=== PATIENT | male | born 1945 | race Caucasian/White ===

== ENCOUNTER 2024-12-06 19:08 | Inpatient (IN) | payer MEDICARE, BC, OTHER ==
[2024-12-06] VITALS: BP 112/68; TEMP 98.2; O2SAT 99
[~2024-12-06] VITALS: Ht 175.3 cm; Wt 97.1 kg
[2024-12-06 20:24] LABS: PLATELET COUNT (AUTO) 194 K/uL (150-450); RED BLOOD CELL COUNT(AUTO) 4.25 MIL/uL (4.5-6.0); RED CELL DISTRIBUTION WIDTH 16.5 % (11.5-15.0); WHITE BLOOD COUNT (AUTO) 6.8 K/uL (4.3-11.0)
[2024-12-06 20:28] LABS: CALCIUM, SERUM 8.1 mg/dL (8.5-10.1); CREATININE 0.8 mg/dL (0.6-1.3); SODIUM SERUM 135 mmol/L (136-145); UREA NITROGEN, BLOOD 15 mg/dL (7-18)
[2024-12-06 20:41] LABS: ASPARTATE AMINOTRANSFERASE 25 U/L (15-37); NT-PRO BNP 6251 pg/mL (0-125); TOTAL PROTEIN, SERUM 6.2 g/dL (6.4-8.2)
[2024-12-06] MEDS ORDERED: FUROSEMIDE 40 MG/4 ML VIAL ONE (21:20)
[2024-12-06] MEDS: FUROSEMIDE 40 MG/4 ML VIAL IV ONE (21:28)
[2024-12-06 21:44] VITALS: BP 122/80; TEMP 98.2; O2SAT 98
[2024-12-06 22:00] VITALS: BP 122/80; TEMP 98.2; O2SAT 98
[2024-12-06] MEDS ORDERED: MAG HYDROX/AL HYDROX/SIMETH 30 ML UDC PO PRN (22:00)
[2024-12-06] MEDS ORDERED: MAGNESIUM HYDROXIDE 30 ML UDC PO PRN (22:00)
[2024-12-07] VITALS: BP 112/68; TEMP 98.2; O2SAT 99
[2024-12-07] MEDS ORDERED: ATOR20TA PO (00:25)
[2024-12-07] MEDS ORDERED: SENN1TAB33 PO (00:25)
[2024-12-07] MEDS ORDERED: TAMS-12 PO (00:25)
[2024-12-07 00:59] LABS: APPEARANCE,URINE CLEAR (CLEAR); BLOOD, URINE NEGATIVE Ery/uL (NEGATIVE); LEUKOCYTE ESTERASE ,URINE TRACE (NEGATIVE); NITRITE, URINE NEGATIVE (NEGATIVE); UGLUCOSE NEGATIVE (NEGATIVE)
[2024-12-07 01:05] LABS: ADD URINE CULTURE NO; SQUAMOUS EPITHELIAL CELL,UR Rare /HPF (None Seen)
[2024-12-07 04:00] VITALS: BP 119/86; TEMP 98.2; O2SAT 98
[2024-12-07 07:30] VITALS: BP 118/80; TEMP 97.5; O2SAT 99
[2024-12-07 07:58] LABS: CALCIUM, SERUM 8.4 mg/dL (8.5-10.1); CREATININE 0.9 mg/dL (0.6-1.3); NT-PRO BNP 6612.0 pg/mL (0-125); PHOSPHORUS 4.4 mg/dL (2.5-4.9); SODIUM SERUM 142.0 mmol/L (136-145); UREA NITROGEN, BLOOD 13.0 mg/dL (7-18)
[2024-12-07 08:08] LABS: PLATELET COUNT (AUTO) 197 K/uL (150-450); RED BLOOD CELL COUNT(AUTO) 4.45 MIL/uL (4.5-6.0); RED CELL DISTRIBUTION WIDTH 15.9 % (11.5-15.0); WHITE BLOOD COUNT (AUTO) 5.6 K/uL (4.3-11.0)
[2024-12-07] MEDS: FUROSEMIDE 20 MG/2 ML VIAL IV SCH (08:28)
[2024-12-07] MEDS: TAMSULOSIN 0.4 MG CAP.SR.24H PO SCH (09:09)
[2024-12-07] MEDS ORDERED: SENNOSIDES/DOCUSATE SODIUM 1 TAB TABLET PO PRN (09:30)
[2024-12-07] MEDS: FUROSEMIDE 40 MG/4 ML VIAL IV SCH (12:58)
[2024-12-07] MEDS: ACETAMINOPHEN 325 MG TABLET PO PRN (16:55)
[2024-12-07 20:00] VITALS: BP 101/69; TEMP 98.1; O2SAT 98
[2024-12-07] MEDS: ENOXAPARIN SODIUM 40 MG/0.4 ML DISP.SYRIN SQ SCH (20:23)
[2024-12-08 04:00] VITALS: BP 108/67; TEMP 97.9; O2SAT 98
[2024-12-08 06:58] LABS: LDL 31.0 mg/dL (0-99)
[2024-12-08 07:00] LABS: PLATELET COUNT (AUTO) 202 K/uL (150-450); RED BLOOD CELL COUNT(AUTO) 4.29 MIL/uL (4.5-6.0); RED CELL DISTRIBUTION WIDTH 15.3 % (11.5-15.0); WHITE BLOOD COUNT (AUTO) 5.2 K/uL (4.3-11.0)
[2024-12-08 07:06] LABS: ASPARTATE AMINOTRANSFERASE 14.0 U/L (15-37); CALCIUM, SERUM 8.0 mg/dL (8.5-10.1); CREATININE 1.1 mg/dL (0.6-1.3); PHOSPHORUS 4.5 mg/dL (2.5-4.9); SODIUM SERUM 142.0 mmol/L (136-145); TOTAL PROTEIN, SERUM 5.7 g/dL (6.4-8.2); UREA NITROGEN, BLOOD 16.0 mg/dL (7-18)
[2024-12-08 08:00] VITALS: BP 99/64; TEMP 97.7; O2SAT 96
[2024-12-08] MEDS: SPIRONOLACTONE 25 MG TABLET PO SCH (09:39)
[2024-12-08] MEDS: POTASSIUM CHLORIDE 20 MEQ TAB.PRT.SR PO SCH (09:39)
[2024-12-08] MEDS: ATORVASTATIN 40 MG TABLET PO SCH (09:39)
[2024-12-08] MEDS: ENOXAPARIN SODIUM 100 MG/ML DISP.SYRIN SQ SCH (09:52)
[2024-12-08] MEDS: NEOMY SULF/BACITRAC ZN/POLY 15 GM TUBE TP SCH (10:44)
[2024-12-08 11:30] VITALS: BP 95/61; TEMP 97.7; O2SAT 96
[2024-12-08 16:00] VITALS: BP 112/70; TEMP 97.9; O2SAT 97
[2024-12-08 20:00] VITALS: BP 101/63; TEMP 97.7; O2SAT 99
[2024-12-08 23:52] VITALS: BP 100/76; TEMP 98; O2SAT 98
[2024-12-09 04:04] VITALS: BP 101/63; TEMP 97.9; O2SAT 99
[2024-12-09 06:42] LABS: PLATELET COUNT (AUTO) 223 K/uL (150-450); RED BLOOD CELL COUNT(AUTO) 4.18 MIL/uL (4.5-6.0); RED CELL DISTRIBUTION WIDTH 15.5 % (11.5-15.0); WHITE BLOOD COUNT (AUTO) 4.9 K/uL (4.3-11.0)
[2024-12-09 07:03] LABS: ASPARTATE AMINOTRANSFERASE 16.0 U/L (15-37); CALCIUM, SERUM 8.1 mg/dL (8.5-10.1); CREATININE 0.9 mg/dL (0.6-1.3); PHOSPHORUS 3.4 mg/dL (2.5-4.9); SODIUM SERUM 137.0 mmol/L (136-145); TOTAL PROTEIN, SERUM 5.9 g/dL (6.4-8.2); UREA NITROGEN, BLOOD 15.0 mg/dL (7-18)
[2024-12-09 08:00] VITALS: BP 110/81; TEMP 97.3; O2SAT 98
[2024-12-09] MEDS: APIXABAN 5 MG TABLET PO SCH (08:44)
[2024-12-09] MEDS: FUROSEMIDE 40 MG TABLET PO SCH (08:49)
[2024-12-09] MEDS: CARVEDILOL 6.25 MG TABLET PO SCH (08:50)
[2024-12-09 12:00] VITALS: BP 107/71; TEMP 97.5; O2SAT 98
[2024-12-09 16:00] VITALS: BP 99/70; TEMP 97.5; O2SAT 99
[2024-12-09] MEDS: MINERAL OIL/PETROLATUM,WHITE 120 GM JAR TP SCH (17:00)
[2024-12-09 20:00] VITALS: BP 106/73; TEMP 97.3; O2SAT 99
[2024-12-09] MEDS: TRAZODONE 50 MG TABLET PO SCH (21:17)
[2024-12-10] VITALS (9 sets, daily range): BP systolic 93–120; BP diastolic 60–80; TEMP 97.2–98.8; O2SAT 96–99
[2024-12-10] MEDS: FUROSEMIDE 40 MG/4 ML VIAL IV SCH (11:01)
[2024-12-10 13:32] LABS: PLATELET COUNT (AUTO) 192 K/uL (150-450); RED BLOOD CELL COUNT(AUTO) 4.11 MIL/uL (4.5-6.0); RED CELL DISTRIBUTION WIDTH 15.1 % (11.5-15.0); WHITE BLOOD COUNT (AUTO) 4.9 K/uL (4.3-11.0)
[2024-12-10 14:00] LABS: CALCIUM, SERUM 8.3 mg/dL (8.5-10.1); CREATININE 1.1 mg/dL (0.6-1.3); SODIUM SERUM 134.0 mmol/L (136-145); UREA NITROGEN, BLOOD 19.0 mg/dL (7-18)
[2024-12-10 14:07] LABS: ASPARTATE AMINOTRANSFERASE 17.0 U/L (15-37); PHOSPHORUS 3.7 mg/dL (2.5-4.9); TOTAL PROTEIN, SERUM 6.1 g/dL (6.4-8.2)
[2024-12-10] MEDS: ALBUTEROL FS 2.5 MG/3 ML VIAL.NEB NEB PRN (16:12)
[2024-12-11] VITALS: BP 109/70; TEMP 97.5; O2SAT 98
[2024-12-11 04:00] VITALS: BP 105/75; TEMP 97.7; O2SAT 99
[2024-12-11 06:44] VITALS: BP 105/75; TEMP 97.7; O2SAT 99
[2024-12-11 06:47] LABS: PLATELET COUNT (AUTO) 183 K/uL (150-450); RED BLOOD CELL COUNT(AUTO) 4.54 MIL/uL (4.5-6.0); RED CELL DISTRIBUTION WIDTH 16.3 % (11.5-15.0); WHITE BLOOD COUNT (AUTO) 6.2 K/uL (4.3-11.0)
[2024-12-11 07:00] VITALS: BP 103/74; TEMP 97.5; O2SAT 98
[2024-12-11 07:02] LABS: CALCIUM, SERUM 8.3 mg/dL (8.5-10.1); CREATININE 1.0 mg/dL (0.6-1.3); PHOSPHORUS 4.3 mg/dL (2.5-4.9); SODIUM SERUM 129.0 mmol/L (136-145); UREA NITROGEN, BLOOD 23.0 mg/dL (7-18)
[2024-12-11] MEDS: BUMETANIDE INJ 16 MG in IV NS 0.9% 16 ML IV ONE (09:04)
[2024-12-11 16:00] VITALS: BP 106/76; TEMP 97.3; O2SAT 98
[2024-12-11 20:11] VITALS: BP 104/79; TEMP 97.3; O2SAT 98
[2024-12-12] VITALS (7 sets, daily range): BP systolic 101–109; BP diastolic 66–75; TEMP 97–98.1; O2SAT 96–100
[2024-12-12 07:53] LABS: ASPARTATE AMINOTRANSFERASE 21.0 U/L (15-37); CALCIUM, SERUM 8.1 mg/dL (8.5-10.1); CREATININE 1.0 mg/dL (0.6-1.3); PHOSPHORUS 4.0 mg/dL (2.5-4.9); SODIUM SERUM 133.0 mmol/L (136-145); TOTAL PROTEIN, SERUM 6.4 g/dL (6.4-8.2); UREA NITROGEN, BLOOD 25.0 mg/dL (7-18)
[2024-12-12 09:14] LABS: PLATELET COUNT (AUTO) 186 K/uL (150-450); RED BLOOD CELL COUNT(AUTO) 4.41 MIL/uL (4.5-6.0); RED CELL DISTRIBUTION WIDTH 16.3 % (11.5-15.0); WHITE BLOOD COUNT (AUTO) 4.9 K/uL (4.3-11.0)
[2024-12-12 15:21] LABS: ABG BASE EXCESS 10.8 mmol/L (-2.0-3.0); ABG OXYGEN SATURATION 97.4 % (94.0-98.0); ABG PCO2 52.3 mmHg (35.0-48.0); ABG PH 7.460 (7.350-7.450); ABG PO2 98.1 mmHg (83.0-108.0); ABG TOTAL HEMOGLOBIN 12.9 G/dL (13.5-17.5); FLOW, BLOOD GAS 3.00 L/min (0.00-30.00); SITE, ABG RIGHT RADIAL
[2024-12-13 09:14] VITALS: BP 106/72; TEMP 98.6; O2SAT 97
[2024-12-13] MEDS ORDERED: ETOMIDATE 2 MG/ML VIAL IV ONE (09:19)
[2024-12-13] MEDS ORDERED: ROCURONIUM BROMIDE 50 MG/5 ML IV ONE (09:19)
[2024-12-13 10:51] LABS: PLATELET COUNT (AUTO) 180 K/uL (150-450); RED BLOOD CELL COUNT(AUTO) 4.13 MIL/uL (4.5-6.0); RED CELL DISTRIBUTION WIDTH 15.1 % (11.5-15.0); WHITE BLOOD COUNT (AUTO) 5.4 K/uL (4.3-11.0)
[2024-12-13 10:59] LABS: CALCIUM, SERUM 8.4 mg/dL (8.5-10.1); CREATININE 0.9 mg/dL (0.6-1.3); UREA NITROGEN, BLOOD 28.0 mg/dL (7-18)
[2024-12-13 11:21] LABS: SODIUM SERUM 136.0 mmol/L (136-145)
[2024-12-13 11:34] LABS: INR 6.8 (0.91-1.10)
[2024-12-13 12:30] VITALS: BP 103/72; TEMP 97.5; O2SAT 95
[2024-12-13] MEDS: DOBUTamine 500 MG in IV D5W 210 ML IV ONE (12:54)
[2024-12-13] MEDS: DOBUTamine 500 MG in IV D5W 210 ML IV SCH (13:20)
[2024-12-13 16:24] VITALS: BP 125/62; TEMP 98.4; O2SAT 98
[2024-12-13 20:00] VITALS: BP 119/60; TEMP 97.9; O2SAT 98
[2024-12-14] VITALS: BP 102/59; TEMP 97.9; O2SAT 100
[2024-12-14 04:00] VITALS: BP 112/59; TEMP 97.7; O2SAT 100
[2024-12-14 08:00] VITALS: BP 121/61; TEMP 98.1; O2SAT 99
[2024-12-14 12:00] VITALS: BP 104/60; TEMP 97.8; O2SAT 100
[2024-12-14 15:59] LABS: PLATELET COUNT (AUTO) 178 K/uL (150-450); RED BLOOD CELL COUNT(AUTO) 4.34 MIL/uL (4.5-6.0); RED CELL DISTRIBUTION WIDTH 15.9 % (11.5-15.0); WHITE BLOOD COUNT (AUTO) 5.3 K/uL (4.3-11.0)
[2024-12-14 16:00] VITALS: BP 120/69; TEMP 97.7; O2SAT 99
[2024-12-14 16:06] LABS: CALCIUM, SERUM 8.6 mg/dL (8.5-10.1); CREATININE 0.9 mg/dL (0.6-1.3); SODIUM SERUM 138.0 mmol/L (136-145); UREA NITROGEN, BLOOD 19.0 mg/dL (7-18)
[2024-12-14 20:00] VITALS: BP 112/63; TEMP 98.1; O2SAT 99
[2024-12-15] VITALS: BP 110/82; TEMP 98.2; O2SAT 98
[2024-12-15 04:00] VITALS: BP 123/62; TEMP 98.4; O2SAT 100
[2024-12-15 06:56] LABS: PLATELET COUNT (AUTO) 185 K/uL (150-450); RED BLOOD CELL COUNT(AUTO) 4.00 MIL/uL (4.5-6.0); RED CELL DISTRIBUTION WIDTH 15.7 % (11.5-15.0); WHITE BLOOD COUNT (AUTO) 5.2 K/uL (4.3-11.0)
[2024-12-15 07:09] LABS: CALCIUM, SERUM 8.5 mg/dL (8.5-10.1); CREATININE 0.8 mg/dL (0.6-1.3); SODIUM SERUM 141.0 mmol/L (136-145); UREA NITROGEN, BLOOD 14.0 mg/dL (7-18)
[2024-12-15 08:00] VITALS: BP 114/72; TEMP 97.1; O2SAT 100
[2024-12-15 10:42] LABS: EOSINOPHILS % (MANUAL) 5 % (0-4); LYMPHOCYTES % (MANUAL) 11 % (16-48); MONOCYTES % (MANUAL) 14 % (0-11.0); NEUTROPHILS % (MANUAL) 70 (42-76); PLATELET ESTIMATE ADEQUATE
[2024-12-15] MEDS: acetaZOLAMIDE SODIUM 500 MG/VIAL VIAL IV SCH (11:20)
[2024-12-15 12:00] VITALS: BP 106/68; TEMP 97.8; O2SAT 100
[2024-12-15 16:00] VITALS: BP 115/60; TEMP 98.1; O2SAT 100
[2024-12-15 20:00] VITALS: BP 122/51; TEMP 98.3; O2SAT 98
[2024-12-16] VITALS (8 sets, daily range): BP systolic 111–120; BP diastolic 55–62; TEMP 97.7–98.1; O2SAT 98–100
[2024-12-16 07:04] LABS: CALCIUM, SERUM 8.4 mg/dL (8.5-10.1); CREATININE 0.8 mg/dL (0.6-1.3); SODIUM SERUM 139.0 mmol/L (136-145); UREA NITROGEN, BLOOD 14.0 mg/dL (7-18)
[2024-12-16 07:20] LABS: PLATELET COUNT (AUTO) 182 K/uL (150-450); RED BLOOD CELL COUNT(AUTO) 4.00 MIL/uL (4.5-6.0); RED CELL DISTRIBUTION WIDTH 15.3 % (11.5-15.0); WHITE BLOOD COUNT (AUTO) 5.3 K/uL (4.3-11.0)
[2024-12-16] MEDS ORDERED: SILVER NITRATE APPLICATOR 1 EA BOX TP SCH (11:30)
[2024-12-17] VITALS: BP 126/58; TEMP 97.7; O2SAT 99
[2024-12-17 04:00] VITALS: BP 111/54; TEMP 97.9; O2SAT 99
[2024-12-17 07:24] LABS: PLATELET COUNT (AUTO) 191 K/uL (150-450); RED BLOOD CELL COUNT(AUTO) 3.90 MIL/uL (4.5-6.0); RED CELL DISTRIBUTION WIDTH 15.5 % (11.5-15.0); WHITE BLOOD COUNT (AUTO) 4.9 K/uL (4.3-11.0)
[2024-12-17 07:57] LABS: CALCIUM, SERUM 8.7 mg/dL (8.5-10.1); CREATININE 0.8 mg/dL (0.6-1.3); SODIUM SERUM 142.0 mmol/L (136-145); UREA NITROGEN, BLOOD 16.0 mg/dL (7-18)
[2024-12-17 08:00] VITALS: BP 133/80; TEMP 97.9; O2SAT 96
[2024-12-17 08:22] LABS: INR 6.76 (0.91-1.10)
[2024-12-17 12:00] VITALS: BP 129/84; TEMP 98.1; O2SAT 97
[2024-12-17 13:53] LABS: INR 7.01 (0.91-1.10)
[2024-12-17 16:00] VITALS: BP 123/62; TEMP 98; O2SAT 99
[2024-12-17 18:47] LABS: IRON, SERUM 25 ug/dl (50-175)
[2024-12-17 20:00] VITALS: BP 100/95; TEMP 97.5; O2SAT 100
[2024-12-18] VITALS: BP 120/62; TEMP 97.6; O2SAT 98
[2024-12-18 04:00] VITALS: BP 120/60; TEMP 97.7; O2SAT 99
[2024-12-18 08:14] VITALS: BP 120/61; TEMP 97.7; O2SAT 100
[2024-12-18 08:16] LABS: PLATELET COUNT (AUTO) 211 K/uL (150-450); RED BLOOD CELL COUNT(AUTO) 3.91 MIL/uL (4.5-6.0); RED CELL DISTRIBUTION WIDTH 15.8 % (11.5-15.0); WHITE BLOOD COUNT (AUTO) 5.5 K/uL (4.3-11.0)
[2024-12-18 08:26] LABS: CALCIUM, SERUM 8.7 mg/dL (8.5-10.1); CREATININE 0.8 mg/dL (0.6-1.3); SODIUM SERUM 140.0 mmol/L (136-145); UREA NITROGEN, BLOOD 19.0 mg/dL (7-18)
[2024-12-18 09:10] LABS: INR 4.88 (0.91-1.10)
[2024-12-18] MEDS: BUMETANIDE INJ 16 MG in IV NS 0.9% 16 ML IV ONE (09:35)
[2024-12-18 12:00] VITALS: BP 127/68; TEMP 97.9; O2SAT 99
[2024-12-18 12:07] LABS: FOLIC ACID 7.6 ng/mL (>3.0)
[2024-12-18] MEDS ORDERED: PHYTONADIONE INJ 1 MG/0.5 ML AMPUL IM ONE (13:00)
[2024-12-18] MEDS: PHYTONADIONE INJ 10 MG/1 ML AMPUL SQ ONE (13:04)
[2024-12-18] MEDS: CYANOCOBALAMIN 1,000 MCG/ML VIAL IM SCH (13:33)
[2024-12-18 16:32] VITALS: BP 110/67; TEMP 97.9; O2SAT 96
[2024-12-18] MEDS: FERROUS SULFATE (325 MG) 325 MG/TAB TABLET PO SCH (16:51)
[2024-12-18 20:00] VITALS: BP 112/59; TEMP 98.1; O2SAT 97
[2024-12-19] VITALS: BP 117/56; TEMP 98.2; O2SAT 96
[2024-12-19 04:00] VITALS: BP 92/56; TEMP 98.1; O2SAT 99
[2024-12-19 06:58] LABS: PLATELET COUNT (AUTO) 248 K/uL (150-450); RED BLOOD CELL COUNT(AUTO) 4.16 MIL/uL (4.5-6.0); RED CELL DISTRIBUTION WIDTH 15.2 % (11.5-15.0); WHITE BLOOD COUNT (AUTO) 6.1 K/uL (4.3-11.0)
[2024-12-19 07:31] LABS: INR 4.31 (0.91-1.10)
[2024-12-19 08:00] VITALS: BP 104/56; TEMP 98.1; O2SAT 99
[2024-12-19 08:01] LABS: CALCIUM, SERUM 8.6 mg/dL (8.5-10.1); CREATININE 0.9 mg/dL (0.6-1.3); SODIUM SERUM 139.0 mmol/L (136-145); UREA NITROGEN, BLOOD 25.0 mg/dL (7-18)
[2024-12-19 08:07] LABS: IMMUNOGLOBULIN A, SERUM 207 mg/dL (61-437); IMMUNOGLOBULIN M, SERUM 17 mg/dL (15-143)
[2024-12-19] MEDS: DoBUTamine 500 MG/250 ML PIGGYBACK IV ONE (08:57)
[2024-12-19 11:08] LABS: FREE KAPPA LT CHAINS SERUM 33.1 mg/L (3.3-19.4); FREE LAMBDA LT CHAIN SERUM 29.2 mg/L (5.7-26.3); KAPPA/LAMBDA RATIO SERUM 1.13 (0.26-1.65)
[2024-12-19 12:00] VITALS: BP 102/66; TEMP 97.9; O2SAT 99
[2024-12-19] MEDS: acetaZOLAMIDE SODIUM 500 MG/VIAL VIAL IV ONE (12:57)
[2024-12-19 16:00] VITALS: BP 95/65; TEMP 97.3; O2SAT 97
[2024-12-19 20:00] VITALS: BP 96/57; TEMP 98.8; O2SAT 99
[2024-12-20] VITALS: BP 95/63; TEMP 98.8; O2SAT 100
[2024-12-20 00:06] LABS: FACTOR VIII ACTIVITY 201 % (56-140)
[2024-12-20 04:00] VITALS: BP 120/77; TEMP 97.5; O2SAT 99
[2024-12-20 07:02] LABS: PLATELET COUNT (AUTO) 255 K/uL (150-450); RED BLOOD CELL COUNT(AUTO) 4.48 MIL/uL (4.5-6.0); RED CELL DISTRIBUTION WIDTH 15.3 % (11.5-15.0); WHITE BLOOD COUNT (AUTO) 4.9 K/uL (4.3-11.0)
[2024-12-20 07:30] LABS: CALCIUM, SERUM 8.7 mg/dL (8.5-10.1); CREATININE 1.0 mg/dL (0.6-1.3); SODIUM SERUM 140.0 mmol/L (136-145); UREA NITROGEN, BLOOD 26.0 mg/dL (7-18)
[2024-12-20 07:59] LABS: INR 4.07 (0.91-1.10)
[2024-12-20 08:00] VITALS: BP 98/66; TEMP 97.3; O2SAT 99
[2024-12-20 12:00] VITALS: BP 116/46; TEMP 98.4; O2SAT 99
[2024-12-20 16:00] VITALS: BP 138/62; TEMP 98.4
[2024-12-20 20:00] VITALS: BP 95/55; TEMP 98.1; O2SAT 98
[2024-12-21] VITALS (7 sets, daily range): BP systolic 91–108; BP diastolic 57–66; TEMP 97.7–98.8; O2SAT 98–99
[2024-12-21 07:29] LABS: PLATELET COUNT (AUTO) 268 K/uL (150-450); RED BLOOD CELL COUNT(AUTO) 3.98 MIL/uL (4.5-6.0); RED CELL DISTRIBUTION WIDTH 15.6 % (11.5-15.0); WHITE BLOOD COUNT (AUTO) 5.8 K/uL (4.3-11.0)
[2024-12-21 07:35] LABS: CALCIUM, SERUM 8.6 mg/dL (8.5-10.1); CREATININE 0.9 mg/dL (0.6-1.3); SODIUM SERUM 137.0 mmol/L (136-145); UREA NITROGEN, BLOOD 29.0 mg/dL (7-18)
[2024-12-21] MEDS: FUROSEMIDE 100 MG/10 ML VIAL IV SCH (09:30)
[2024-12-21 11:35] LABS: INR 3.82 (0.91-1.10)
[2024-12-22] VITALS: BP 99/57; TEMP 97.7; O2SAT 100
[2024-12-22 04:00] VITALS: BP 97/67; TEMP 97.5; O2SAT 97
[2024-12-22 07:54] LABS: PLATELET COUNT (AUTO) 271 K/uL (150-450); RED BLOOD CELL COUNT(AUTO) 4.05 MIL/uL (4.5-6.0); RED CELL DISTRIBUTION WIDTH 15.3 % (11.5-15.0); WHITE BLOOD COUNT (AUTO) 6.1 K/uL (4.3-11.0)
[2024-12-22 08:00] VITALS: BP 97/59; TEMP 97.7; O2SAT 98
[2024-12-22 08:00] LABS: INR 3.91 (0.91-1.10)
[2024-12-22 08:12] LABS: ASPARTATE AMINOTRANSFERASE 19.0 U/L (15-37); CALCIUM, SERUM 8.5 mg/dL (8.5-10.1); CREATININE 1.0 mg/dL (0.6-1.3); PHOSPHORUS 3.7 mg/dL (2.5-4.9); SODIUM SERUM 139.0 mmol/L (136-145); TOTAL PROTEIN, SERUM 6.2 g/dL (6.4-8.2); UREA NITROGEN, BLOOD 31.0 mg/dL (7-18)
[2024-12-22 10:07] LABS: VITAMIN B1 THIAMINE,WB 89.4 nmol/L (66.5-200.0)
[2024-12-22] MEDS: ONDANSETRON HCL/PF 4 MG/2 ML VIAL IVP PRN (11:44)
[2024-12-22 12:00] VITALS: BP 99/58; TEMP 98; O2SAT 99
[2024-12-22 16:00] VITALS: BP 102/67; TEMP 97.8; O2SAT 97
[2024-12-22 20:00] VITALS: BP 106/70; TEMP 97.9; O2SAT 93
[2024-12-23] VITALS: BP 100/64; TEMP 97.7; O2SAT 99
[2024-12-23 04:00] VITALS: BP 100/65; TEMP 97.9; O2SAT 98
[2024-12-23 07:11] LABS: PLATELET COUNT (AUTO) 285 K/uL (150-450); RED BLOOD CELL COUNT(AUTO) 4.09 MIL/uL (4.5-6.0); RED CELL DISTRIBUTION WIDTH 15.6 % (11.5-15.0); WHITE BLOOD COUNT (AUTO) 5.4 K/uL (4.3-11.0)
[2024-12-23 07:29] LABS: CALCIUM, SERUM 9.0 mg/dL (8.5-10.1); CREATININE 0.9 mg/dL (0.6-1.3); INR 3.83 (0.91-1.10); SODIUM SERUM 136.0 mmol/L (136-145); UREA NITROGEN, BLOOD 32.0 mg/dL (7-18)
[2024-12-23 08:00] VITALS: BP 100/65; TEMP 97.5; O2SAT 94
[2024-12-23 16:00] VITALS: BP 109/70; TEMP 97.7; O2SAT 97
[2024-12-24 04:00] VITALS: BP 114/78; TEMP 98.1; O2SAT 99
[2024-12-24 06:47] LABS: CALCIUM, SERUM 7.7 mg/dL (8.5-10.1); CREATININE 2.4 mg/dL (0.6-1.3); SODIUM SERUM 150.0 mmol/L (136-145); UREA NITROGEN, BLOOD 30.0 mg/dL (7-18)
[2024-12-24 06:54] LABS: PLATELET COUNT (AUTO) 303 K/uL (150-450); RED BLOOD CELL COUNT(AUTO) 4.06 MIL/uL (4.5-6.0); RED CELL DISTRIBUTION WIDTH 15.2 % (11.5-15.0); WHITE BLOOD COUNT (AUTO) 5.3 K/uL (4.3-11.0)
[2024-12-24 07:17] LABS: INR 3.83 (0.91-1.10)
[2024-12-24 10:05] VITALS: O2SAT 98
[2024-12-24 10:20] VITALS: O2SAT 99
[2024-12-24] MEDS: IV D5W 1,000 ML IV ONE (10:44)
[2024-12-24] MEDS ORDERED: SPIR25TA6 PO (11:00)
[2024-12-24 12:00] VITALS: O2SAT 99
[2024-12-24 12:21] LABS: CALCIUM, SERUM 8.6 mg/dL (8.5-10.1); CREATININE 0.8 mg/dL (0.6-1.3); SODIUM SERUM 136.0 mmol/L (136-145); UREA NITROGEN, BLOOD 33.0 mg/dL (7-18)
[2024-12-24 12:23] LABS: EOSINOPHIL,URINE None Seen
[2024-12-24 12:24] LABS: APPEARANCE,URINE CLEAR (CLEAR); BLOOD, URINE TRACE-INTA Ery/uL (NEGATIVE); LEUKOCYTE ESTERASE ,URINE NEGATIVE (NEGATIVE); NITRITE, URINE NEGATIVE (NEGATIVE); UGLUCOSE NEGATIVE (NEGATIVE)
[2024-12-24 12:32] LABS: CREATININE, URINE 74.9 MG/DL (30.0-125.0); URINE SODIUM, RANDOM 7.0 mmol/l (40-220); URINE TOTAL PROTEIN 18.0 mg/dL (0-11.9)
[2024-12-24 12:37] LABS: ADD URINE CULTURE NO; SQUAMOUS EPITHELIAL CELL,UR Rare /HPF (None Seen)
[2024-12-24 14:43] LABS: CALCIUM, SERUM 8.7 mg/dL (8.5-10.1); CREATININE 0.9 mg/dL (0.6-1.3); SODIUM SERUM 134.0 mmol/L (136-145); UREA NITROGEN, BLOOD 32.0 mg/dL (7-18)
[2024-12-24 15:10] LABS: METHYLMALONIC ACID 318.0 nmol/L (0-378)
[2024-12-24 17:42] LABS: CALCIUM, SERUM 8.7 mg/dL (8.5-10.1); CREATININE 0.8 mg/dL (0.6-1.3); SODIUM SERUM 133.0 mmol/L (136-145); UREA NITROGEN, BLOOD 36.0 mg/dL (7-18)
[2024-12-24 20:00] VITALS: BP 106/72; TEMP 97.9; O2SAT 99
[2024-12-25 04:00] VITALS: BP 113/71; TEMP 97.3; O2SAT 100
[2024-12-25 06:47] LABS: PLATELET COUNT (AUTO) 293 K/uL (150-450); RED BLOOD CELL COUNT(AUTO) 4.13 MIL/uL (4.5-6.0); RED CELL DISTRIBUTION WIDTH 15.8 % (11.5-15.0); WHITE BLOOD COUNT (AUTO) 5.6 K/uL (4.3-11.0)
[2024-12-25 06:53] LABS: CALCIUM, SERUM 8.6 mg/dL (8.5-10.1); CREATININE 0.9 mg/dL (0.6-1.3); SODIUM SERUM 133.0 mmol/L (136-145); UREA NITROGEN, BLOOD 30.0 mg/dL (7-18)
[2024-12-25 06:54] LABS: INR 3.89 (0.91-1.10)
[2024-12-25 08:00] VITALS: BP 111/75; TEMP 97.1; O2SAT 100
[2024-12-25 12:00] VITALS: BP 114/66; TEMP 97.9; O2SAT 97
[2024-12-26 16:09] LABS: *SPE A/G RATIO 0.8 (0.7-1.7); *SPE ALBUMIN 2.3 g/dL (2.9-4.4); *SPE ALPHA-1-GLOBULIN 0.4 g/dL (0.0-0.4); *SPE ALPHA-2-GLOBULIN 0.8 g/dL (0.4-1.0); *SPE BETA GLOBULIN 0.9 g/dL (0.7-1.3); *SPE GLOBULIN, TOTAL 3.0 g/dL (2.2-3.9); *SPE M-SPIKE Not Observed g/dL (Not Observed); *SPE PROTEIN TOTAL 5.3 g/dL (6.0-8.5); *SPEGAMMA GLOBULIN 0.9 g/dL (0.4-1.8)
== END 2024-12-25 15:13 | DRG 291 ==
LOC: ER 19:16 → EDBD 20:45 → MED 20:45 → TELE 22:18 → TELE-TD 12-13 12:02 → TELE1 12-17 09:42 → MEDSG1 12-23 10:04
PROVIDERS: ADMIT Nurse Practitioner Family
DX: I13.0 Hypertensive heart and chronic kidney disease with heart failure and stage 1 through stage 4 chronic kidney disease, or unspecified chronic kidney disease (principal); I50.23 Acute on chronic systolic (congestive) heart failure; J96.01 Acute respiratory failure with hypoxia; E87.1 Hypo-osmolality and hyponatremia; E44.1 Mild protein-calorie malnutrition; N17.9 Acute kidney failure, unspecified; D68.9 Coagulation defect, unspecified; L03.116 Cellulitis of left lower limb; I82.4Z2 Acute embolism and thrombosis of unspecified deep veins of left distal lower extremity; E87.0 Hyperosmolality and hypernatremia; J90 Pleural effusion, not elsewhere classified; E87.3 Alkalosis; E66.9 Obesity, unspecified; E88.09 Other disorders of plasma-protein metabolism, not elsewhere classified; E87.5 Hyperkalemia; I25.5 Ischemic cardiomyopathy; Z20.822 Contact with and (suspected) exposure to COVID-19; N18.9 Chronic kidney disease, unspecified; N40.0 Benign prostatic hyperplasia without lower urinary tract symptoms; R73.9 Hyperglycemia, unspecified; I25.10 Atherosclerotic heart disease of native coronary artery without angina pectoris; E78.5 Hyperlipidemia, unspecified; Z68.35 Body mass index [BMI] 35.0-35.9, adult; K76.0 Fatty (change of) liver, not elsewhere classified; Z87.891 Personal history of nicotine dependence; D64.9 Anemia, unspecified; D72.821 Monocytosis (symptomatic); Z79.899 Other long term (current) drug therapy; R23.3 Spontaneous ecchymoses; S01.81XA Laceration without foreign body of other part of head, initial encounter; X58.XXXA Exposure to other specified factors, initial encounter; Y92.9 Unspecified place or not applicable; Z79.01 Long term (current) use of anticoagulants; M79.672 Pain in left foot; M79.671 Pain in right foot
CPT/HCPCS: 36415; 70450-TC; 71045-TC; 71250-TC; 76700-TC; 76856-TC; 80048-TC; 80053-TC; 80061-TC; 80076-TC; 81001; 81241; 82378; 82570-TC; 82607-TC; 82728-TC; 82784; 83540-TC; 83690-TC; 83735-TC; 83880; 83921; 84100-TC; 84155; 84165; 84300-TC; 84425; 84443-TC; 84484-TC; 85025-TC; 85027-TC; 85240; 85385-TC; 85610-TC; 85730-TC; 86334; 87086-TC; 93307-TC; 93971-TC; 94799-TC; 97110-TC; 97116-TC; 97164; 97530-TC; A4223; G0378; J1120; J1250; J1650; J1938; J2405; J3420; J3430; J3490; J7060; J7070

== ENCOUNTER 2025-02-16 14:15 | Inpatient (IN) | payer MEDICARE, BC ==
[2025-02-16] VITALS: BP_SYST 107; TEMP 97.8; O2SAT 97
[~2025-02-16] VITALS: Ht 180.3 cm; Wt 99.4 kg
[~2025-02-16 14:15] MED LIST: ATOR20TA PO; FURO-144 PO; LORA-258 PO; SACU1TAB PO; SENN1TAB33 PO; SPIR25TA PO; TAMS-12 PO
[2025-02-16 15:02] LABS: PLATELET COUNT (AUTO) 160 K/uL (150-450); RED BLOOD CELL COUNT(AUTO) 3.77 MIL/uL (4.5-6.0); RED CELL DISTRIBUTION WIDTH 17.1 % (11.5-15.0); WHITE BLOOD COUNT (AUTO) 4.3 K/uL (4.3-11.0)
[2025-02-16 15:09] LABS: CALCIUM, SERUM 7.9 mg/dL (8.5-10.1); CREATININE 0.8 mg/dL (0.6-1.3); SODIUM SERUM 125.0 mmol/L (136-145); UREA NITROGEN, BLOOD 21.0 mg/dL (7-18)
[2025-02-16] MEDS ORDERED: ASPI-1169 PO (15:25)
[2025-02-16] MEDS ORDERED: ACET325T53 PO (15:25)
[2025-02-16] MEDS ORDERED: METO25TA4 PO (15:25)
[2025-02-16] MEDS ORDERED: SODIUM ZIRCONIUM CYCLOSILICATE 10 GM POWD.PACK ONE (15:28)
[2025-02-16 15:44] LABS: EOSINOPHILS % (MANUAL) 1 % (0-4); LYMPHOCYTES % (MANUAL) 13 % (16-48); MONOCYTES % (MANUAL) 18 % (0-11.0); NEUTROPHILS % (MANUAL) 68 (42-76)
[2025-02-16 15:45] LABS: PLATELET ESTIMATE ADEQUATE
[2025-02-16] MEDS: SODIUM ZIRCONIUM CYCLOSILICATE 10 GM POWD.PACK PO ONE (15:45)
[2025-02-16] MEDS ORDERED: Z GUARD REMEDY 4 OZ OINT TP PRN (17:30)
[2025-02-16] MEDS ORDERED: MAGNESIUM HYDROXIDE 30 ML UDC PO PRN (17:30)
[2025-02-16] MEDS ORDERED: ZOLPIDEM TARTRATE 5 MG TABLET PO PRN (17:30)
[2025-02-16] MEDS ORDERED: ONDANSETRON HCL/PF 4 MG/2 ML VIAL IVP PRN (17:30)
[2025-02-16] MEDS: ENOXAPARIN SODIUM 40 MG/0.4 ML DISP.SYRIN SQ SCH (17:40)
[2025-02-16] MEDS: FUROSEMIDE 20 MG/2 ML VIAL IV SCH (17:42)
[2025-02-16 18:17] VITALS: BP 109/64; TEMP 97.1; O2SAT 100
[2025-02-16 20:20] LABS: CALCIUM, SERUM 7.8 mg/dL (8.5-10.1); CREATININE 0.9 mg/dL (0.6-1.3); SODIUM SERUM 128.0 mmol/L (136-145); UREA NITROGEN, BLOOD 21.0 mg/dL (7-18)
[2025-02-16] MEDS: ATORVASTATIN 10 MG TABLET PO SCH (21:23)
[2025-02-16 22:00] VITALS: BP 107/75; TEMP 97.3; O2SAT 97
[2025-02-17] VITALS: BP 108/80; TEMP 97.8; O2SAT 97
[2025-02-17 04:00] VITALS: BP 113/69; TEMP 97.5; O2SAT 95
[2025-02-17 07:15] LABS: CALCIUM, SERUM 7.8 mg/dL (8.5-10.1); CREATININE 0.7 mg/dL (0.6-1.3); PHOSPHORUS 4.1 mg/dL (2.5-4.9); SODIUM SERUM 125.0 mmol/L (136-145); UREA NITROGEN, BLOOD 18.0 mg/dL (7-18)
[2025-02-17 07:26] LABS: RED BLOOD CELL COUNT(AUTO) 3.98 MIL/uL (4.5-6.0); RED CELL DISTRIBUTION WIDTH 17.9 % (11.5-15.0); WHITE BLOOD COUNT (AUTO) 5.1 K/uL (4.3-11.0)
[2025-02-17 07:27] LABS: PLATELET COUNT (AUTO) 155 K/uL (150-450)
[2025-02-17 08:00] VITALS: BP 120/67; TEMP 97.9; O2SAT 96
[2025-02-17] MEDS: PANTOPRAZOLE 40 MG TABLET.DR PO SCH (08:15)
[2025-02-17] MEDS: METOPROLOL SUCCINATE 25 MG TAB.SR.24H PO SCH (08:49)
[2025-02-17] MEDS: ASPIRIN 81 MG TAB.CHEW PO SCH (08:50)
[2025-02-17] MEDS: TAMSULOSIN 0.4 MG CAP.SR.24H PO SCH (08:50)
[2025-02-17] MEDS: THERAHONEY GEL 1.5 OZ TUBE TP SCH (11:00)
[2025-02-17 12:00] VITALS: BP 93/59; TEMP 97.2; O2SAT 97
[2025-02-17 13:28] LABS: EOSINOPHILS % (MANUAL) 1 % (0-4); LYMPHOCYTES % (MANUAL) 8 % (16-48); MONOCYTES % (MANUAL) 6 % (0-11.0); NEUTROPHILS % (MANUAL) 85 (42-76)
[2025-02-17 13:30] LABS: PLATELET ESTIMATE ADEQUATE
[2025-02-17 14:14] LABS: CALCIUM, SERUM 7.6 mg/dL (8.5-10.1); CREATININE 0.7 mg/dL (0.6-1.3); PHOSPHORUS 4.1 mg/dL (2.5-4.9); SODIUM SERUM 128.0 mmol/L (136-145); UREA NITROGEN, BLOOD 19.0 mg/dL (7-18)
[2025-02-17 16:00] VITALS: BP 105/66; TEMP 97.2; O2SAT 98
[2025-02-17 20:00] VITALS: BP 100/54; TEMP 96.9; O2SAT 100
[2025-02-18] VITALS: BP 91/49; TEMP 95.7; O2SAT 100
[2025-02-18 04:00] VITALS: BP 107/53; TEMP 97.5; O2SAT 99
[2025-02-18 08:20] VITALS: BP 97/58; TEMP 97.9; O2SAT 99
[2025-02-18 12:09] VITALS: BP 92/60; TEMP 97.8; O2SAT 100
[2025-02-18 15:56] LABS: CALCIUM, SERUM 7.8 mg/dL (8.5-10.1); CREATININE 0.6 mg/dL (0.6-1.3); SODIUM SERUM 127.0 mmol/L (136-145); UREA NITROGEN, BLOOD 18.0 mg/dL (7-18)
[2025-02-18 16:00] VITALS: BP 101/55; TEMP 98.1; O2SAT 97
[2025-02-18 16:46] LABS: PLATELET COUNT (AUTO) 127 K/uL (150-450); RED BLOOD CELL COUNT(AUTO) 3.67 MIL/uL (4.5-6.0); RED CELL DISTRIBUTION WIDTH 17.2 % (11.5-15.0); WHITE BLOOD COUNT (AUTO) 3.4 K/uL (4.3-11.0)
[2025-02-18] MEDS ORDERED: DOBUTamine 500 MG in IV D5W 210 ML IV PRN (17:30)
[2025-02-18] MEDS: DOBUTamine 500 MG in IV D5W 210 ML IV PRN (18:23)
[2025-02-18 19:03] LABS: LYMPHOCYTES % (MANUAL) 9 % (16-48); MONOCYTES % (MANUAL) 8 % (0-11.0); NEUTROPHILS % (MANUAL) 83 (42-76); PLATELET ESTIMATE ADEQUATE
[2025-02-18 20:00] VITALS: BP 127/51; TEMP 97.7; O2SAT 98
[2025-02-19] VITALS: BP 107/40; TEMP 97.7; O2SAT 98
[2025-02-19 04:00] VITALS: BP 107/53; TEMP 97.8; O2SAT 100
[2025-02-19 08:10] VITALS: BP 113/53; TEMP 97.9; O2SAT 99
[2025-02-19 09:11] LABS: PLATELET COUNT (AUTO) 145 K/uL (150-450); RED BLOOD CELL COUNT(AUTO) 3.72 MIL/uL (4.5-6.0); RED CELL DISTRIBUTION WIDTH 17.3 % (11.5-15.0); WHITE BLOOD COUNT (AUTO) 4.3 K/uL (4.3-11.0)
[2025-02-19 09:27] LABS: ASPARTATE AMINOTRANSFERASE 13.0 U/L (15-37); CALCIUM, SERUM 8.1 mg/dL (8.5-10.1); CREATININE 0.6 mg/dL (0.6-1.3); TOTAL PROTEIN, SERUM 5.7 g/dL (6.4-8.2); UREA NITROGEN, BLOOD 14.0 mg/dL (7-18)
[2025-02-19 09:37] LABS: SODIUM SERUM 132.0 mmol/L (136-145)
[2025-02-19 11:09] LABS: ABG BASE EXCESS 13.7 mmol/L (-2.0-3.0); ABG OXYGEN SATURATION 98.4 % (94.0-98.0); ABG PCO2 74.1 mmHg (35.0-48.0); ABG PH 7.366 (7.350-7.450); ABG PO2 123.2 mmHg (83.0-108.0); ABG TOTAL HEMOGLOBIN 9.9 G/dL (13.5-17.5); FLOW, BLOOD GAS 4.00 L/min (0.00-30.00); FRACTIONATED INSPIRED OXYGEN 36.0 %; SITE, ABG RIGHT RADIAL
[2025-02-19 12:10] VITALS: BP 103/47; TEMP 97.7; O2SAT 99
[2025-02-19 12:51] LABS: EOSINOPHILS % (MANUAL) 1 % (0-4); LYMPHOCYTES % (MANUAL) 5 % (16-48); MONOCYTES % (MANUAL) 15 % (0-11.0); NEUTROPHILS % (MANUAL) 79 (42-76); PLATELET ESTIMATE DECREASED
[2025-02-19 14:50] LABS: ABG BASE EXCESS 17.4 mmol/L (-2.0-3.0); ABG OXYGEN SATURATION 94.1 % (94.0-98.0); ABG PCO2 64.2 mmHg (35.0-48.0); ABG PH 7.453 (7.350-7.450); ABG PO2 63.6 mmHg (83.0-108.0); ABG TOTAL HEMOGLOBIN 10.2 G/dL (13.5-17.5); FRACTIONATED INSPIRED OXYGEN 24.0 %; SET RATE, BG 18.0; SITE, ABG RIGHT RADIAL
[2025-02-19 16:07] VITALS: BP 121/58; TEMP 98.1; O2SAT 96
[2025-02-19 20:00] VITALS: BP 122/56; TEMP 97.6; O2SAT 24
[2025-02-20] VITALS: BP 120/69; TEMP 98.4; O2SAT 24
[2025-02-20 04:00] VITALS: BP 124/59; TEMP 97.9; O2SAT 24
[2025-02-20 07:54] LABS: PLATELET COUNT (AUTO) 146 K/uL (150-450); RED BLOOD CELL COUNT(AUTO) 3.67 MIL/uL (4.5-6.0); RED CELL DISTRIBUTION WIDTH 17.1 % (11.5-15.0); WHITE BLOOD COUNT (AUTO) 4.2 K/uL (4.3-11.0)
[2025-02-20 08:00] VITALS: BP 111/75; TEMP 97.5
[2025-02-20 08:04] LABS: ASPARTATE AMINOTRANSFERASE 19.0 U/L (15-37); CALCIUM, SERUM 8.2 mg/dL (8.5-10.1); CREATININE 0.5 mg/dL (0.6-1.3); SODIUM SERUM 133.0 mmol/L (136-145); TOTAL PROTEIN, SERUM 5.9 g/dL (6.4-8.2); UREA NITROGEN, BLOOD 12.0 mg/dL (7-18)
[2025-02-20] MEDS: FUROSEMIDE 20 MG/2 ML VIAL IV SCH (08:34)
[2025-02-20 12:00] VITALS: BP 100/54; TEMP 97.9; O2SAT 98
[2025-02-20] MEDS: BUMETANIDE INJ 6 MG in IV NS 0.9% 36 ML IV ONE (13:48)
[2025-02-20 16:00] VITALS: BP 100/55; TEMP 97.9; O2SAT 95
[2025-02-20 20:00] VITALS: BP 98/56; TEMP 98; O2SAT 93
[2025-02-21] VITALS: BP 105/58; TEMP 98.2; O2SAT 93
[2025-02-21 04:00] VITALS: BP 98/57; TEMP 98.8; O2SAT 97
[2025-02-21 07:16] LABS: PLATELET COUNT (AUTO) 150 K/uL (150-450); RED BLOOD CELL COUNT(AUTO) 3.77 MIL/uL (4.5-6.0); RED CELL DISTRIBUTION WIDTH 17.9 % (11.5-15.0); WHITE BLOOD COUNT (AUTO) 4.4 K/uL (4.3-11.0)
[2025-02-21 07:35] LABS: ASPARTATE AMINOTRANSFERASE 17.0 U/L (15-37); CALCIUM, SERUM 8.0 mg/dL (8.5-10.1); CREATININE 0.6 mg/dL (0.6-1.3); SODIUM SERUM 136.0 mmol/L (136-145); TOTAL PROTEIN, SERUM 5.6 g/dL (6.4-8.2); UREA NITROGEN, BLOOD 13.0 mg/dL (7-18)
[2025-02-21 08:00] VITALS: BP 105/64; TEMP 97.9; O2SAT 93
[2025-02-21] MEDS: POTASSIUM CHLORIDE 20 MEQ TAB.PRT.SR PO SCH (10:20)
[2025-02-21 12:00] VITALS: BP 101/60; TEMP 97.7; O2SAT 97
[2025-02-21 13:29] LABS: APPEARANCE,URINE CLEAR (CLEAR); BLOOD, URINE NEGATIVE Ery/uL (NEGATIVE); LEUKOCYTE ESTERASE ,URINE 1+ (NEGATIVE); NITRITE, URINE NEGATIVE (NEGATIVE); UGLUCOSE NEGATIVE (NEGATIVE)
[2025-02-21 13:40] LABS: ADD URINE CULTURE YES; SQUAMOUS EPITHELIAL CELL,UR None Seen /HPF (None Seen)
[2025-02-21 16:00] VITALS: BP 119/53; TEMP 98.1; O2SAT 98
[2025-02-21] MEDS: ENSURE ENLIVE 237 ML LIQUID (VANILLA) PO SCH (17:33)
[2025-02-21 20:00] VITALS: BP_SYST 102; BP_SYST 92; BP_DIAS 50; TEMP 97.4; O2SAT 98
[2025-02-22] VITALS: BP 101/52; TEMP 98.7; O2SAT 96
[2025-02-22 04:00] VITALS: BP 123/61; TEMP 97.7; O2SAT 96
[2025-02-22 07:33] LABS: PLATELET COUNT (AUTO) 159 K/uL (150-450); RED BLOOD CELL COUNT(AUTO) 3.99 MIL/uL (4.5-6.0); RED CELL DISTRIBUTION WIDTH 17.7 % (11.5-15.0); WHITE BLOOD COUNT (AUTO) 3.7 K/uL (4.3-11.0)
[2025-02-22 07:52] LABS: ASPARTATE AMINOTRANSFERASE 21.0 U/L (15-37); CALCIUM, SERUM 8.1 mg/dL (8.5-10.1); CREATININE 0.6 mg/dL (0.6-1.3); SODIUM SERUM 136.0 mmol/L (136-145); TOTAL PROTEIN, SERUM 5.8 g/dL (6.4-8.2); UREA NITROGEN, BLOOD 12.0 mg/dL (7-18)
[2025-02-22 08:00] VITALS: BP 121/63; TEMP 98.6; O2SAT 96
[2025-02-22] MEDS: SENNOSIDES/DOCUSATE SODIUM 1 UDTAB TABLET PO PRN (08:50)
[2025-02-22 12:00] VITALS: BP 119/58; TEMP 97.5; O2SAT 96
[2025-02-22] MEDS: CEFTRIAXONE 1 G in IV D5W 50 ML IV SCH (12:13)
[2025-02-22 16:00] VITALS: BP 119/58; TEMP 98.4; O2SAT 98
[2025-02-22 20:00] VITALS: BP 115/59; TEMP 97.7; O2SAT 98
[2025-02-23] VITALS: BP 116/61; TEMP 97.9; O2SAT 98
[2025-02-23 04:00] VITALS: BP 105/55; TEMP 97.7; O2SAT 98
[2025-02-23 07:53] LABS: PLATELET COUNT (AUTO) 177 K/uL (150-450); RED BLOOD CELL COUNT(AUTO) 3.80 MIL/uL (4.5-6.0); RED CELL DISTRIBUTION WIDTH 17.6 % (11.5-15.0); WHITE BLOOD COUNT (AUTO) 4.3 K/uL (4.3-11.0)
[2025-02-23 08:00] VITALS: BP 105/65; TEMP 98.8; O2SAT 98
[2025-02-23 08:11] LABS: ASPARTATE AMINOTRANSFERASE 19 U/L (15-37); CALCIUM, SERUM 8.0 mg/dL (8.5-10.1); CREATININE 0.5 mg/dL (0.6-1.3); SODIUM SERUM 131 mmol/L (136-145); TOTAL PROTEIN, SERUM 6.0 g/dL (6.4-8.2); UREA NITROGEN, BLOOD 14 mg/dL (7-18)
[2025-02-23 12:10] VITALS: BP 117/61; TEMP 98.7; O2SAT 98
[2025-02-23 16:00] VITALS: BP 100/58; TEMP 97.7; O2SAT 98
[2025-02-23 20:00] VITALS: BP 91/56; TEMP 98; O2SAT 94
[2025-02-24] VITALS: BP 91/52; TEMP 98.3; O2SAT 98
[2025-02-24 04:00] VITALS: BP 98/58; TEMP 98.3; O2SAT 98
[2025-02-24 06:34] LABS: PLATELET COUNT (AUTO) 174 K/uL (150-450); RED BLOOD CELL COUNT(AUTO) 4.04 MIL/uL (4.5-6.0); RED CELL DISTRIBUTION WIDTH 17.9 % (11.5-15.0); WHITE BLOOD COUNT (AUTO) 4.7 K/uL (4.3-11.0)
[2025-02-24 07:01] LABS: ASPARTATE AMINOTRANSFERASE 21.0 U/L (15-37); CALCIUM, SERUM 8.4 mg/dL (8.5-10.1); CREATININE 0.7 mg/dL (0.6-1.3); SODIUM SERUM 133.0 mmol/L (136-145); TOTAL PROTEIN, SERUM 6.1 g/dL (6.4-8.2); UREA NITROGEN, BLOOD 17.0 mg/dL (7-18)
[2025-02-24 08:00] VITALS: BP 105/61; TEMP 98.4; O2SAT 98
[2025-02-24 12:00] VITALS: BP 90/46; TEMP 100; O2SAT 97
[2025-02-24] MEDS: ACETAMINOPHEN 325 MG TABLET PO PRN (12:51)
[2025-02-24] MEDS: LEVOFLOXACIN 500 MG /D5W 100ML 500 MG in PREMIX 1 EA IV SCH (15:06)
[2025-02-24 16:00] VITALS: BP 88/44; TEMP 98.2; O2SAT 96
[2025-02-24 16:49] LABS: ABG BASE EXCESS 12.3 mmol/L (-2.0-3.0); ABG OXYGEN SATURATION 97.2 % (94.0-98.0); ABG PCO2 53.6 mmHg (35.0-48.0); ABG PH 7.465 (7.350-7.450); ABG PO2 88.5 mmHg (83.0-108.0); ABG TOTAL HEMOGLOBIN 10.0 G/dL (13.5-17.5); FLOW, BLOOD GAS 2.00 L/min (0.00-30.00); FRACTIONATED INSPIRED OXYGEN 28.0 %; SITE, ABG RIGHT RADIAL
[2025-02-24] MEDS: FUROSEMIDE 40 MG/4 ML VIAL IV SCH (17:27)
[2025-02-24 20:00] VITALS: BP 93/53; TEMP 98.2; O2SAT 96
[2025-02-25] VITALS: BP 98/59; TEMP 97.5; O2SAT 99
[2025-02-25 04:00] VITALS: BP 106/62; TEMP 97.5; O2SAT 99
[2025-02-25 07:48] LABS: CALCIUM, SERUM 8.5 mg/dL (8.5-10.1); CREATININE 0.7 mg/dL (0.6-1.3); SODIUM SERUM 136.0 mmol/L (136-145); UREA NITROGEN, BLOOD 24.0 mg/dL (7-18)
[2025-02-25 07:55] LABS: ASPARTATE AMINOTRANSFERASE 17.0 U/L (15-37); TOTAL PROTEIN, SERUM 6.1 g/dL (6.4-8.2)
[2025-02-25 08:08] VITALS: BP 101/62; TEMP 97.9; O2SAT 96
[2025-02-25 08:42] LABS: PHOSPHORUS 3.7 mg/dL (2.5-4.9)
[2025-02-25 12:05] VITALS: BP 103/59; TEMP 97.6; O2SAT 98
[2025-02-25] MEDS: PROSOURCE / PROSTAT (PYXIS) 30 ML UDC PO SCH (13:30)
[2025-02-25] MEDS ORDERED: DOSING PER PHARMACY-CEFEPIME IVPB XX PRN (14:00)
[2025-02-25 14:17] LABS: PLATELET COUNT (AUTO) 145 K/uL (150-450); RED BLOOD CELL COUNT(AUTO) 3.62 MIL/uL (4.5-6.0); RED CELL DISTRIBUTION WIDTH 17.7 % (11.5-15.0); WHITE BLOOD COUNT (AUTO) 4.2 K/uL (4.3-11.0)
[2025-02-25] MEDS: CEFEPIME 2 GM in IV D5W 100 ML IV SCH (15:03)
[2025-02-25 16:05] VITALS: BP 102/62; TEMP 98.4; O2SAT 98
[2025-02-25 20:00] VITALS: BP 100/62; TEMP 98.2; O2SAT 98
[2025-02-25 21:20] LABS: APPEARANCE,URINE CLEAR (CLEAR); BLOOD, URINE 1+ Ery/uL (NEGATIVE); LEUKOCYTE ESTERASE ,URINE 3+ (NEGATIVE); NITRITE, URINE POSITIVE (NEGATIVE); UGLUCOSE NEGATIVE (NEGATIVE)
[2025-02-25 21:25] LABS: ADD URINE CULTURE YES; SQUAMOUS EPITHELIAL CELL,UR Few /HPF (None Seen)
[2025-02-26] VITALS (7 sets, daily range): BP systolic 93–105; BP diastolic 54–62; TEMP 97.4–98.4; O2SAT 97–99
[2025-02-26 07:43] LABS: PLATELET COUNT (AUTO) 177 K/uL (150-450); RED BLOOD CELL COUNT(AUTO) 3.85 MIL/uL (4.5-6.0); RED CELL DISTRIBUTION WIDTH 18.0 % (11.5-15.0); WHITE BLOOD COUNT (AUTO) 5.1 K/uL (4.3-11.0)
[2025-02-26 07:47] LABS: ASPARTATE AMINOTRANSFERASE 18.0 U/L (15-37); CALCIUM, SERUM 8.4 mg/dL (8.5-10.1); CREATININE 0.8 mg/dL (0.6-1.3); PHOSPHORUS 3.7 mg/dL (2.5-4.9); SODIUM SERUM 138.0 mmol/L (136-145); TOTAL PROTEIN, SERUM 6.2 g/dL (6.4-8.2); UREA NITROGEN, BLOOD 24.0 mg/dL (7-18)
[2025-02-26 07:48] LABS: INR 3.64 (0.91-1.10)
[2025-02-26 09:15] LABS: APPEARANCE,URINE CLEAR (CLEAR); BLOOD, URINE TRACE-INTA Ery/uL (NEGATIVE); LEUKOCYTE ESTERASE ,URINE 1+ (NEGATIVE); NITRITE, URINE NEGATIVE (NEGATIVE); UGLUCOSE NEGATIVE (NEGATIVE)
[2025-02-26 09:28] LABS: ADD URINE CULTURE YES
[2025-02-26] MEDS ORDERED: IOHEXOL 0 ML IV ONE (12:20)
[2025-02-26] MEDS ORDERED: LIDOCAINE 1% INJ 50 ML MDV IJ ONE (12:20)
[2025-02-26] MEDS ORDERED: SUGAMMADEX SODIUM 200 MG/2 ML VIAL IV ONE (12:55)
[2025-02-26] MEDS ORDERED: NOREPINEPHRINE 4 MG/4 ML AMPUL IV ONE (12:55)
[2025-02-26] MEDS ORDERED: FENTANYL PF 100MCG/2ML AMPUL ONE (12:56)
[2025-02-26] MEDS ORDERED: VASOPRESSIN INJ 20 UNIT/ML VIAL ONE (12:56)
[2025-02-26] MEDS ORDERED: ROCURONIUM BROMIDE 50 MG/5 ML ONE (12:56)
[2025-02-26] MEDS ORDERED: CELLULOSE,OXIDIZED 1 EA PACK MC ONE (13:47)
[2025-02-27] VITALS: BP 99/57; TEMP 98.1; O2SAT 100
[2025-02-27 04:00] VITALS: BP 105/55; TEMP 97.7; O2SAT 99
[2025-02-27 07:52] LABS: PLATELET COUNT (AUTO) 184 K/uL (150-450); RED BLOOD CELL COUNT(AUTO) 3.80 MIL/uL (4.5-6.0); RED CELL DISTRIBUTION WIDTH 18.1 % (11.5-15.0); WHITE BLOOD COUNT (AUTO) 5.8 K/uL (4.3-11.0)
[2025-02-27 08:00] VITALS: BP 99/55; TEMP 97.7; O2SAT 99
[2025-02-27 08:11] LABS: ASPARTATE AMINOTRANSFERASE 22.0 U/L (15-37); CALCIUM, SERUM 8.4 mg/dL (8.5-10.1); CREATININE 0.7 mg/dL (0.6-1.3); PHOSPHORUS 3.8 mg/dL (2.5-4.9); SODIUM SERUM 138.0 mmol/L (136-145); TOTAL PROTEIN, SERUM 6.4 g/dL (6.4-8.2); UREA NITROGEN, BLOOD 24.0 mg/dL (7-18)
[2025-02-27 09:00] VITALS: BP 90/54
[2025-02-27] MEDS ORDERED: CEFE2FRO IV (11:01)
== END 2025-02-27 11:23 | DRG 276 ==
LOC: ER 14:20 → TELE1 17:03 → TELE-TD 02-18 15:21 → TELE1 02-24 09:40
PROVIDERS: ADMIT Nurse Practitioner Family; ATTEND Nurse Practitioner Family
PROC: 5A09357 Assistance with Respiratory Ventilation, Less than 24 Consecutive Hours, Continuous Positive Airway Pressure (ICD-10-PCS; principal; 2025-02-19)
PROC: 0JH608Z Insertion of Defibrillator Generator into Chest Subcutaneous Tissue and Fascia, Open Approach (ICD-10-PCS; 2025-02-26)
PROC: 02HK3KZ Insertion of Defibrillator Lead into Right Ventricle, Percutaneous Approach (ICD-10-PCS; 2025-02-26)
DX: I13.0 Hypertensive heart and chronic kidney disease with heart failure and stage 1 through stage 4 chronic kidney disease, or unspecified chronic kidney disease (principal); G93.41 Metabolic encephalopathy; I50.23 Acute on chronic systolic (congestive) heart failure; J96.21 Acute and chronic respiratory failure with hypoxia; E87.4 Mixed disorder of acid-base balance; E66.2 Morbid (severe) obesity with alveolar hypoventilation; E87.1 Hypo-osmolality and hyponatremia; B96.5 Pseudomonas (aeruginosa) (mallei) (pseudomallei) as the cause of diseases classified elsewhere; N17.9 Acute kidney failure, unspecified; N39.0 Urinary tract infection, site not specified; L89.309 Pressure ulcer of unspecified buttock, unspecified stage; B96.20 Unspecified Escherichia coli [E. coli] as the cause of diseases classified elsewhere; F03.94 Unspecified dementia, unspecified severity, with anxiety; N18.9 Chronic kidney disease, unspecified; D64.9 Anemia, unspecified; J98.11 Atelectasis; R13.10 Dysphagia, unspecified; L89.156 Pressure-induced deep tissue damage of sacral region; E87.5 Hyperkalemia; F41.9 Anxiety disorder, unspecified; E78.5 Hyperlipidemia, unspecified; Z79.82 Long term (current) use of aspirin; Z79.899 Other long term (current) drug therapy; I25.5 Ischemic cardiomyopathy; Z68.30 Body mass index [BMI] 30.0-30.9, adult; N40.0 Benign prostatic hyperplasia without lower urinary tract symptoms; R79.89 Other specified abnormal findings of blood chemistry
CPT/HCPCS: 31720; 36415; 36600; 71045-TC; 80048-TC; 80053-TC; 81001; 82533; 82803-TC; 83735-TC; 83935-TC; 84100-TC; 84300-TC; 84443-TC; 84550-TC; 85025-TC; 85027-TC; 85610-TC; 85730-TC; 86850-TC; 87040-TC; 87081-TC; 87086-TC; 87186-TC; 93308-TC; 94760-TC; 94799-TC; A4216; A4223; C1722; G0378; J0690; J0692; J0696; J1250; J1650; J1938; J1956; J2405; J2704; J3010; J3490; J7030; J7050; J7060; Q9967